=== PATIENT | male | born 1980 | race Hispanic/Latino ===

== ENCOUNTER 2022-01-19 08:44 | Emergency (ER) | payer BC ==
[2022-01-19] MEDS ORDERED: Famotidine/PF 20 mg/2ml Vial ONE (09:06)
[2022-01-19] MEDS ORDERED: predniSONE 20 MG TAB ONE (09:06)
[2022-01-19] MEDS ORDERED: Dexamethasone 10 MG/ML VIAL ONE (09:06)
[2022-01-19] MEDS ORDERED: EPINEPHrine 1 MG/ML VIAL ONE ×2 (09:08→09:13)
== END 2022-01-19 10:53 | disposition home or self-care (01) ==
LOC: EEVIPCON 08:44 → ERS 08:44
DX: T78.2XXA Anaphylactic shock, unspecified, initial encounter (principal)
CPT/HCPCS: 96372; 96374; 96375; J0171; J1100; J7512; S0028